=== PATIENT | female | born 1960 | race Caucasian/White ===

== ENCOUNTER 2016-11-10 19:43 | Emergency (ER) | payer SELFPAY ==
[~2016-11-10] VITALS: Ht 175.3 cm; Wt 74.8 kg
[2016-11-10 20:36] LABS: Basophils # (auto) 0.1 uL; Basophils % (auto) 0.7 % (0.0-2.0); CONDITION Y; Eosinophils # (auto) 0.1 uL; Eosinophils % (auto) 0.6 % (0.0-7.0); Hematocrit 46.2 % (36.0-46.0); Hemoglobin 15.7 g/dL (12.2-16.2); Lymphocytes # (auto) 3.3 uL; Lymphocytes % (auto) 23.4 % (10.0-50.0); Mean Corpuscular Hemoglobin 30.7 pg (28.0-32.0); Mean Corpuscular Hgb Conc. 34.1 g/dL (32.0-36.0); Mean Corpuscular Volume 90.1 fL (80.0-100.0); Mean Platelet Volume 8.6 fL (7.4-10.4); Monocytes # (auto) 1.1 uL; Monocytes % (auto) 7.6 % (0.0-12.0); Neutrophils # (auto) 9.5 uL; Neutrophils % (auto) 67.7 % (37.0-80.0); Platelet Count (auto) 439 10^3/uL (140-450); Red Cell Distribution Width 14.5 % (11.6-16.0)
[2016-11-10] MEDS: SODIUM CHLORIDE 0.9% 1,000 ML IVB ONE (20:38)
[2016-11-10 20:52] LABS: Albumin 4.1 g/dL (3.4-5.0); Anion Gap 9 (5-15); Aspartate Aminotransferase 10 U/L (15-37); BUN/Creatinine Ratio 31.2; Blood Urea Nitrogen 24 mg/dL (7-18); Calcium 9.5 mg/dL (8.5-10.1); Carbon Dioxide 25 mmol/L (21-32); Chloride 108 mmol/L (98-107); GFR African American 99 mL/min; GFR Non-African American 82 mL/min; Glucose 132 mg/dL (74-106); Potassium 3.7 mmol/L (3.5-5.1); Sodium 142 mmol/L (136-145)
[2016-11-10 20:54] LABS: Salicylate 6.1 mg/dL (2.8-20.0)
[2016-11-10 20:55] LABS: Alkaline Phosphatase 74 U/L (45-117); Bilirubin, Total 0.4 mg/dL (0.2-1.0); Total Protein 7.6 g/dL (6.4-8.2)
[2016-11-10 21:09] LABS: Acetaminophen < 2.0 ug/mL (10-30)
[2016-11-10] MEDS ORDERED: HALOPERIDOL LACTATE 5 MG/ML INJ VIAL IM ONE (21:30)
[2016-11-11] MEDS ORDERED: HALOPERIDOL LACTATE 5 MG/ML INJ VIAL IM ONE (01:00)
[2016-11-11] MEDS ORDERED: SODIUM CHLORIDE 0.9% 1,000 ML IV ONE (06:00)
[2016-11-11 08:34] LABS: Urine Bilirubin Negative (Negative); Urine Blood Negative /uL (Negative); Urine Color Yellow (Yellow); Urine Glucose Normal (Normal); Urine Ketone 2+ (Negative); Urine Mucus FEW (None Seen); Urine Nitrite Negative (Negative); Urine RBC 10 /hpf (0 - 4); Urine Squamous Epithelial Cell MOD /hpf (<5); Urine pH 5.5 (5.0-8.0)
[2016-11-12] MEDS ORDERED: LORazepam 0.5 MG TAB PO ONE (09:15)
[2016-11-12] MEDS ORDERED: CIPROFLOXACIN HCL 500 MG TAB ONE (09:18)
[2016-11-12] MEDS ORDERED: LORazepam 0.5 MG TAB ONE (09:18)
[2016-11-12] MEDS: CIPROFLOXACIN HCL 500 MG TAB PO SCH (09:52)
[2016-11-12] MEDS ORDERED: LORazepam 2MG/ML-1ML VIAL ONE (16:06)
[2016-11-12] MEDS ORDERED: OLANZapine 5 MG TAB ONE (16:11)
[2016-11-12] MEDS ORDERED: LORazepam 2MG/ML-1ML VIAL IM ONE (16:15)
[2016-11-12] MEDS ORDERED: OLANZapine 5 MG TAB PO ONE (16:15)
[2016-11-13 07:20] VITALS: BP 136/76
[2016-11-13] MEDS: CIPROFLOXACIN HCL 500 MG TAB PO SCH (10:00)
[2016-11-13] MEDS ORDERED: CIPROFLOXACIN HCL 500 MG TAB ONE (10:37)
== END 2016-11-13 20:21 | disposition home or self-care (01) ==
LOC: EDBD 19:43 → ER 19:59
DX: F20.9 Schizophrenia, unspecified (principal)
CPT/HCPCS: 36415; 71010; 80053; 80307; 80320; 80329; 81001; 83735; 85025; 93005; 94761; 96360; 96361; 96372; 99285; J1630; J7030; 70450

== ENCOUNTER 2020-10-31 09:59 | Inpatient (IN) | payer MEDICAID ==
[~2020-10-31] VITALS: Ht 175.3 cm; Wt 87.3 kg
[2020-10-31 10:48] LABS: Basophils # (auto) 0.1 10 ^3/uL (0-0.2); Basophils % (auto) 0.7 % (0.0-2.0); Eosinophils # (auto) 0.4 10 ^3/uL (0-0.8); Eosinophils % (auto) 3.7 % (0.0-7.0); Hematocrit 44.4 % (36.0-46.0); Lymphocytes # (auto) 2.9 10 ^3/uL (0.4-5.4); Lymphocytes % (auto) 24.6 % (10.0-50.0); Mean Corpuscular Hemoglobin 30.8 pg (28.0-32.0); Mean Corpuscular Hgb Conc. 33.7 g/dL (32.0-36.0); Mean Corpuscular Volume 91.1 fL (80.0-100.0); Monocytes # (auto) 0.9 10 ^3/uL (0-1.3); Monocytes % (auto) 7.1 % (0.0-12.0); Neutrophils # (auto) 7.7 10 ^3/uL (1.6-8.6); Neutrophils % (auto) 63.9 % (37.0-80.0); Red Blood Cells 4.87 10^6/uL (4.0-5.20); Red Cell Distribution Width 15.3 % (11.8-14.3)
[2020-10-31 11:08] LABS: Albumin 3.4 g/dL (3.4-5.0); Anion Gap 3 (5-15); Blood Urea Nitrogen 22 mg/dL (7-18); Calcium 8.8 mg/dL (8.5-10.1); Carbon Dioxide 28 mmol/L (21-32); Chloride 111 mmol/L (98-107); Glucose 112 mg/dL (74-106); Magnesium 2.3 mg/dL (1.6-2.6); Potassium 3.7 mmol/L (3.5-5.1); Sodium 142 mmol/L (136-145)
[2020-10-31 11:13] LABS: Alanine Aminotransferase 19 U/L (13-56); Alkaline Phosphatase 77 U/L (45-117); Aspartate Aminotransferase 9 U/L (15-37); BUN/Creatinine Ratio 31.4; Bilirubin, Total 0.4 mg/dL (0.2-1.0); GFR African American 109 mL/min; GFR Non-African American 90 mL/min; Total Protein 6.6 g/dL (6.4-8.2)
[2020-10-31] MEDS ORDERED: ALBUTEROL SULF 2.5 MG/0.5ML(0.5%) NEB SOLN NEB ONE (12:00)
[2020-10-31] MEDS ORDERED: IPRATROPIUM BROM 0.5 MG/2.5ML INH SOL NEB ONE (12:00)
[2020-10-31] MEDS ORDERED: methylPREDNISolone SOD SUCC 125 MG/2 ML VL IV ONE (14:30)
[2020-10-31] MEDS ORDERED: NITROGLYCERIN 0.4 MG SL TAB SL PRN (18:00)
[2020-10-31] MEDS ORDERED: ONDANSETRON HCL 4 MG/2 ML VIAL IV PRN (18:00)
[2020-10-31] MEDS ORDERED: MORPHINE SULFATE INJECTION 2 MG/ML SYRG IV PRN (18:00)
[2020-10-31] MEDS ORDERED: HYDROcodone-ACET 5/325MG TAB PO PRN (18:00)
[2020-10-31] MEDS ORDERED: ACETAMINOPHEN 500 MG TAB PO PRN (18:00)
[2020-10-31 20:09] VITALS: BP 137/76
[2020-10-31] MEDS: MORPHINE SULFATE INJECTION 2 MG/ML SYRG IV PRN (21:08)
[2020-10-31 21:51] VITALS: BP 130/68
[2020-10-31 22:14] VITALS: BP 130/68
[2020-10-31] MEDS ORDERED: PNEUMOCOCCAL VACC POLYS 25 MCG/0.5 ML VIAL IM ONE (22:15)
[2020-10-31] MEDS ORDERED: CYCLOBENZAPRINE HCL 10 MG TAB PO PRN (22:15)
[2020-10-31] MEDS ORDERED: FLUT1SUS (22:18)
[2020-10-31] MEDS ORDERED: IBUP800T27 PO (22:18)
[2020-10-31] MEDS ORDERED: DIPH25CA66 PO (22:18)
[2020-10-31] MEDS ORDERED: ALBU108A5 IN (22:18)
[2020-10-31] MEDS ORDERED: PRED10TA PO (22:18)
[2020-10-31 22:32] LABS: Urine Bacteria NONE SEEN /hpf (None Seen); Urine Blood Negative /uL (Negative); Urine Specific Gravity 1.012 (1.001-1.035); Urine WBC 3 /hpf (0 - 5)
[2020-11-01] MEDS: CYCLOBENZAPRINE HCL 10 MG TAB PO PRN ×2 (01:10→20:36)
[2020-11-01] MEDS: MORPHINE SULFATE INJECTION 2 MG/ML SYRG IV PRN ×5 (02:09→20:28)
[2020-11-01 05:19] VITALS: BP 116/54
[2020-11-01] MEDS: ALBUTEROL SULF 2.5 MG/0.5ML(0.5%) NEB SOLN NEB PRN ×2 (05:53→13:21)
[2020-11-01] MEDS: IPRATROPIUM BROM 0.5 MG/2.5ML INH SOL NEB PRN ×2 (05:53→13:21)
[2020-11-01 09:14] VITALS: BP 114/67
[2020-11-01] MEDS: PANTOPRAZOLE 40 MG/10 ML VIAL INJ IV SCH (09:52)
[2020-11-01 13:26] VITALS: BP 108/68
[2020-11-01 16:29] VITALS: BP 123/71
[2020-11-01 22:00] VITALS: BP 140/72
[2020-11-01] MEDS: NEOMYCIN-BACITRACIN-POLYM 15GM TOP OINT TOP SCH (22:00)
[2020-11-02] MEDS: ACETAMINOPHEN/CODEINE#3 (300/30mg) TAB PO PRN ×3 (02:43→15:45)
[2020-11-02] MEDS: ALBUTEROL SULF 2.5 MG/0.5ML(0.5%) NEB SOLN NEB PRN ×2 (02:54→07:52)
[2020-11-02] MEDS: IPRATROPIUM BROM 0.5 MG/2.5ML INH SOL NEB PRN ×2 (02:54→07:52)
[2020-11-02 05:00] VITALS: BP 128/89
[2020-11-02 05:28] LABS: Basophils # (auto) 0 10 ^3/uL (0-0.2); Basophils % (auto) 0.4 % (0.0-2.0); Eosinophils # (auto) 0.3 10 ^3/uL (0-0.8); Eosinophils % (auto) 3.6 % (0.0-7.0); Hematocrit 42.5 % (36.0-46.0); Hemoglobin 14.4 g/dL (12.2-16.2); Lymphocytes # (auto) 2.6 10 ^3/uL (0.4-5.4); Lymphocytes % (auto) 31.3 % (10.0-50.0); Mean Corpuscular Hemoglobin 31.2 pg (28.0-32.0); Mean Corpuscular Volume 91.7 fL (80.0-100.0); Monocytes # (auto) 0.7 10 ^3/uL (0-1.3); Neutrophils # (auto) 4.5 10 ^3/uL (1.6-8.6); Neutrophils % (auto) 55.7 % (37.0-80.0); Red Blood Cells 4.63 10^6/uL (4.0-5.20); Red Cell Distribution Width 14.7 % (11.8-14.3); White Blood Cell 8.2 10^3/uL (4.4-10.8)
[2020-11-02 06:05] LABS: Potassium 3.5 mmol/L (3.5-5.1)
[2020-11-02 06:15] LABS: Calcium 8.8 mg/dL (8.5-10.1); Magnesium 2.4 mg/dL (1.6-2.6)
[2020-11-02] MEDS ORDERED: CYCLOBENZAPRINE HCL 10 MG TAB PO PRN (06:30)
[2020-11-02 09:00] VITALS: BP 121/67
[2020-11-02] MEDS: PANTOPRAZOLE 40 MG/10 ML VIAL INJ IV SCH (10:00)
[2020-11-02] MEDS: NEOMYCIN-BACITRACIN-POLYM 15GM TOP OINT TOP SCH (10:00)
[2020-11-02] MEDS ORDERED: ALBUAER3 IN (11:59)
[2020-11-02] MEDS ORDERED: NIC21P TOP (11:59)
[2020-11-02] MEDS ORDERED: PRED20TA2 PO (11:59)
[2020-11-02] MEDS ORDERED: DEXT1SYP9 PO (12:00)
[2020-11-02 13:00] VITALS: BP 120/53
[2020-11-02 16:37] VITALS: BP 121/76
[2020-11-02 17:00] VITALS: BP 145/76
== END 2020-11-02 17:30 | disposition home or self-care (01) | DRG 140 ==
LOC: ER 09:59 → OVERFLOW 18:56 → WEST WING 20:15
PROVIDERS: ADMIT Nurse Practitioner Acute Care; ATTEND Internal Medicine
DX: J44.1 Chronic obstructive pulmonary disease with (acute) exacerbation (principal); R65.10 Systemic inflammatory response syndrome (SIRS) of non-infectious origin without acute organ dysfunction; J45.901 Unspecified asthma with (acute) exacerbation; K80.20 Calculus of gallbladder without cholecystitis without obstruction; R09.02 Hypoxemia; M79.18 Myalgia, other site; Z20.822 Contact with and (suspected) exposure to COVID-19; E78.5 Hyperlipidemia, unspecified; F20.9 Schizophrenia, unspecified; Z72.0 Tobacco use; Z71.6 Tobacco abuse counseling; Z76.5 Malingerer [conscious simulation]
CPT/HCPCS: 36415; 71045; 72131; 76705; 78226; 80048; 80053; 80061; 81001; 83036; 83605; 83735; 83880; 84443; 84484; 85025; 85379; 87040; 87426; 93005; 93306; 94640; 96374; C9113; G0378